=== PATIENT | male | born 1995 | race Asian ===

== ENCOUNTER 2017-02-21 10:19 | Emergency (ER) | payer OTHER ==
[2017-02-21 10:26] VITALS: BP 123/72; PULSE 72; RESP 16; TEMP 97.5; O2SAT 98
--- NOTE | 2017-02-21 12:22 | EDPHY ---
H & P Time Seen by Provider: 02/21/17 11:28 HPI/ROS: CHIEF COMPLAINT: Left ankle injury HISTORY OF PRESENT ILLNESS: 21-year-old male presents to the emergency department with injury to his left ankle. The patient was playing soccer last evening and then developed pain in the medial aspect of his left ankle several hours later. He is having pain especially with weight-bearing and walking. Denies any other trauma or injury. ROS: Denies sore tingling in his toes, pain in his left foot or knee. Past Medical/Surgical History: Negative Social History: [employer] student Physical Exam: On examination the patient has no obvious effusion. He has reproducible pain with palpation the medial aspect of the left ankle. No palpable crepitus or other bony abnormality. No obvious ligament instability. Calf is nontender. Achilles tendon is intact. Left knee is stable. Full range of motion of the right lower extremity. Constitutional: Initial Vital Signs Temperature (C) 36.4 C 02/21/17 10:23 Heart Rate 72 02/21/17 10:23 Respiratory Rate 16 02/21/17 10:23 Blood Pressure 123/72 H 02/21/17 10:23 O2 Sat (%) 98 02/21/17 10:23 O2 Delivery Mode Room Air Allergies/Adverse Reactions: No Known Allergies Allergy (Unverified 02/21/17 10:26) Home Medications: Medication Instructions Recorded NK [No Known Home Meds] 02/21/17 MDM/Departure - MDM Imaging Results: Imaging Impressions Ankle X-Ray 02/21/17 11:26 Impression: No source for pain identified. Imaging: I viewed and interpreted images myself Procedures: Patient was placed in Velcro ankle stirrup splint and examined post application in good placement with normal CRAB FISHERMAN. ED Course/Re-evaluation: 21-year-old male presents with left ankle injury. X-rays reveal no fractures. He was placed in a splint and given orthopedic follow-up. - Depart Disposition: Home, Routine, Self-Care Clinical Impression: Left ankle sprain Qualifiers: Encounter type: initial encounter Involved ligament of ankle: unspecified ligament Qualified Code(s): S93.402A - Sprain of unspecified ligament of left ankle, initial encounter Condition: Good Instructions: Ankle Sprain (ED) Additional Instructions: Weightbear as tolerated. Ankle splint for comfort and support. Ibuprofen 400 mg every 8 hours as needed for pain. Referrals: Jaime Olivares MD [Medical Doctor] - 5-7 days, call for appt. (Orthopedist on- call)
== END 2017-02-21 12:38 | disposition home or self-care (01) ==
DX: S93.402A Sprain of unspecified ligament of left ankle, initial encounter (principal); X58.XXXA Exposure to other specified factors, initial encounter; Y99.8 Other external cause status; Y93.66 Activity, soccer
CPT/HCPCS: L4350